=== PATIENT | female | born 1945 ===

== ENCOUNTER 2022-05-18 14:44 | Emergency (ER) | payer OTHER ==
[~2022-05-18] VITALS: Ht 157.5 cm; Wt 59.1 kg
[2022-05-18 14:52] VITALS: BP 147/69
[2022-05-18] MEDS ORDERED: ASPI81TA47 PO (14:53)
[2022-05-18] MEDS ORDERED: ATOR20TA65 PO (14:53)
[2022-05-18] MEDS ORDERED: ACETAMINOPHEN 500 MG TABLET PO ONE (15:45)
[2022-05-18] MEDS ORDERED: IBUPROFEN 400 MG TABLET PO ONE (15:45)
== END 2022-05-18 18:35 | disposition home or self-care (01) ==
LOC: EMS 14:47
DX: S13.4XXA Sprain of ligaments of cervical spine, initial encounter (principal); S00.03XA Contusion of scalp, initial encounter; S40.011A Contusion of right shoulder, initial encounter; E78.00 Pure hypercholesterolemia, unspecified; V43.62XA Car passenger injured in collision with other type car in traffic accident, initial encounter; Y93.89 Activity, other specified; Y92.89 Other specified places as the place of occurrence of the external cause; Y99.8 Other external cause status
CPT/HCPCS: 70450; 71045; 72125; 99284